=== PATIENT | male | born 1970 | race Caucasian/White ===

== ENCOUNTER 2021-02-21 18:31 | Emergency (ER) | payer OTHER ==
--- NOTE | 2021-02-21 19:29 | CT ---
Head CT Technique: Multiple axial sections through the brain were obtained. Intravenous contrast was not utilized. Reconstructed coronal and sagittal images were obtained. Comparison: No prior intracranial imaging is available. Findings: Small radiopacities are projected superficially within the anterior scalp presumably due to foreign bodies. Slight soft tissue swelling is seen within the left face and left periorbital region. Ventricles along with basal cisterns and sulci over the convexities are within normal limits. No abnormal parenchymal densities are seen. No evidence of intracranial hemorrhage or spleen. No midline shift or mass-effect is seen. Soft tissue foreign body is seen within the left side of the face at the level of the mid maxillary sinus measuring 4.2 mm which lies about 1 mm below the skin. Slight mucosal thickening is seen within the paranasal sinuses. No acute calvarial abnormality is appreciated. Visualized mastoid sinuses are clear. Impression: 1. Small soft tissue foreign body as noted on facial bone exam. 2. Small radiopacities which are are projected mostly superficially but may also be slightly within the anterior scalp. 3. No acute intracranial abnormality is appreciated. No acute calvarial abnormality is appreciated. Diagnostic code #2
--- NOTE | 2021-02-21 19:29 | CT ---
CT facial bones Comparison: No prior facial bone imaging is available. Technique: Multiple axial sections of the facial bones were obtained. Intravenous contrast was not utilized. Study was performed utilizing bone algorithm. Reconstructed coronal and sagittal images were obtained. Findings: Mild mucosal thickening is seen within the ethmoid sinuses as well as within both inferior maxillary sinuses. No air-fluid levels are seen within the paranasal sinuses. Numerous lucencies are seen within the maxilla presumably due to multiple removal of dentition. Lucencies are also noted within the mandible likely representing prominent dental surgery. Right and left globes are symmetric. No retrobulbar abnormality is seen. Nasal septal deviation is seen which appears to be chronic. Mild soft tissue swelling is seen within the anterior left cheek extending into the lateral left periorbital region. 4.2 mm soft tissue foreign body is noted at the level of the mid left maxillary sinus which lies about 1 mm below the skin. Very small densities are also seen scattered within the anterior face presumably due to additional very small foreign bodies superficially on the skin and possibly minimally within the soft tissues. No discrete facial bone fracture is seen. Impression: 1. No acute fracture is noted on facial bone study. 2. Multiple lucencies within the maxilla and mandible presumably due to previous dental surgery. 3. Mild mucosal thickening within the paranasal sinuses which is most likely chronic. 4. Small foreign bodies anteriorly which superficially on the skin or possibly minimally within the soft tissues. Largest finding measures about 4.2 mm located laterally at the level of the mid left maxillary sinus. Diagnostic code #3
[2021-02-21] MEDS ORDERED: Diphtheria,Pertussis(Acell),Tetanus Vaccine 0.5 ML Syringe IM ONE (19:30)
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
--- NOTE | 2021-02-21 20:39 | CR ---
Chest: Portable view of the chest was obtained. Comparison: No prior chest imaging is available. Heart size is normal. Tortuous thoracic aorta is seen. Lungs are clear with no acute parenchymal change. No acute osseous finding is appreciated. Impression: 1. Nothing acute is appreciated on portable chest x-ray. Diagnostic code #1
== END 2021-02-21 19:55 | disposition home or self-care (01) ==
LOC: JD.ED 18:31
DX: S06.0X1A Concussion with loss of consciousness of 30 minutes or less, initial encounter (principal); I10 Essential (primary) hypertension; S40.212A Abrasion of left shoulder, initial encounter; S50.312A Abrasion of left elbow, initial encounter; Z23 Encounter for immunization; V27.4XXA Motorcycle driver injured in collision with fixed or stationary object in traffic accident, initial encounter
CPT/HCPCS: 36415; 70450; 70450-26; 70486; 70486-26; 71045; 71045-26; 85025; 90471; 90715; 99284; 99284-25